=== PATIENT | male | born 1990 | race Caucasian/White ===

== ENCOUNTER 2016-06-13 02:33 | Emergency (ER) | payer OTHER | END 2016-06-13 04:20 | disposition home or self-care (01) | LOC: ER 02:33 | DX: S61.012A Laceration without foreign body of left thumb without damage to nail, initial encounter (principal); W45.8XXA Other foreign body or object entering through skin, initial encounter; Y92.019 Unspecified place in single-family (private) house as the place of occurrence of the external cause; F17.210 Nicotine dependence, cigarettes, uncomplicated; Z88.1 Allergy status to other antibiotic agents | CPT/HCPCS: 12001; 99070; 99282 ==

== ENCOUNTER 2016-06-19 18:16 | Emergency (ER) | payer OTHER | END 2016-06-19 18:50 | disposition home or self-care (01) | LOC: ER 18:16 | DX: Z48.817 Encounter for surgical aftercare following surgery on the skin and subcutaneous tissue (principal); F41.9 Anxiety disorder, unspecified; F17.210 Nicotine dependence, cigarettes, uncomplicated; Z88.1 Allergy status to other antibiotic agents | CPT/HCPCS: 99282 ==